=== PATIENT | male | born 1950 | race African-American/Black ===

== ENCOUNTER 2020-08-11 08:33 | Observation (INO) ==
[2020-08-11] MEDS ORDERED: NITROGLYCERIN SL 0.4 MG TABLET SL PRN (09:10)
[2020-08-11] MEDS ORDERED: ASPIRIN 325 MG TABLET PO STA (09:10)
[2020-08-11 09:15] LABS: Basophils % 0.4 % (0.0-0.8); Eosinophils # 0.1 10*3/uL (0.0-0.87); Eosinophils % 1.3 % (0.00-10.9); Hemoglobin 14.4 GM/DL (14.0-18.0); Immature Granulocytes % 0.1 %; Immature Granulocytes Absolute 0.01 #; Lymphocytes # 2.9 10*3/uL (1.4-4.0); Lymphocytes % 38.6 % (21.2-54.2); Mean Corpuscular HGB Conc 33.5 GM/DL (32-36); Mean Corpuscular Volume 92.5 FL (87-102); Mean Platelet Volume 11.2 FL (9.6-12.0); Monocytes % 7.1 % (1.7-12.7); Neutrophils % 52.5 % (38.7-73.9); Platelet Count 218 T/CUMM (130-400); Red Blood Count 4.65 MC/CUMM (3.8-5.5); Red Cell Distribution Width 12.7 % (9.3-17.3); White Blood Count 7.4 T/CUMM (4-12)
[2020-08-11 09:30] LABS: Albumin 4.1 G/DL (3.4-5.0); Bilirubin,Total 0.4 MG/DL (0.2-1.0); Calcium 9.2 MG/DL (8.5-10.1); Potassium 3.9 MMOL/L (3.5-5.1); Total Protein 7.8 G/DL (6.4-8.2)
[2020-08-11 10:42] LABS: INR 1.1; PT Patient Result 11.7 SECS (9.8-11.9)
[2020-08-11] MEDS ORDERED: ACETAMINOPHEN 325 MG TABLET PO PRN (11:09)
[2020-08-11] MEDS ORDERED: GLUCAGON 1 MG VIAL IM PRN ×3 (11:09→14:53)
[2020-08-11] MEDS ORDERED: DEXTROSE 50% 25 GM/50 ML VIAL IV PRN ×3 (11:09→14:53)
[2020-08-11] MEDS ORDERED: ONDANSETRON 4 MG/2 ML VIAL IV PRN (11:09)
[2020-08-11] MEDS ORDERED: KETOROLAC 30 MG/1 ML VIAL IV ONE (11:14)
[2020-08-11] MEDS ORDERED: ENOXAPARIN 40 MG/0.4 ML SYRINGE SUBCUT SCH (11:30)
[2020-08-11] MEDS: INSULIN LISPRO 100 UNIT/ML SUBCUT SCH ×2 (16:26→21:50)
[2020-08-11] MEDS ORDERED: INSULIN GLARGINE 100 UNIT/ML SUBCUT SCH (21:00)
[2020-08-11] MEDS: GABAPENTIN 400 MG CAPSULE PO SCH (21:38)
[2020-08-12 06:16] LABS: Basophils % 0.5 % (0.0-0.8); Eosinophils # 0.1 10*3/uL (0.0-0.87); Eosinophils % 1.8 % (0.00-10.9); Hematocrit 41.7 VOL% (42.0-52.0); Hemoglobin 15.1 GM/DL (14.0-18.0); Immature Granulocytes % 0.2 %; Immature Granulocytes Absolute 0.01 #; Lymphocytes # 2.7 10*3/uL (1.4-4.0); Mean Corpuscular HGB Conc 36.2 GM/DL (32-36); Mean Corpuscular Volume 90.5 FL (87-102); Mean Platelet Volume 11.5 FL (9.6-12.0); Neutrophils % 47.5 % (38.7-73.9); Platelet Count 238 T/CUMM (130-400); Red Blood Count 4.61 MC/CUMM (3.8-5.5); Red Cell Distribution Width 12.7 % (9.3-17.3); White Blood Count 6.3 T/CUMM (4-12)
[2020-08-12] MEDS ORDERED: OMEPRAZOLE ODT 20 MG TABLET PO SCH (06:30)
[2020-08-12 06:34] LABS: Calcium 8.6 MG/DL (8.5-10.1); Potassium 3.9 MMOL/L (3.5-5.1)
[2020-08-12 08:20] VITALS: BP 130/79
[2020-08-12] MEDS ORDERED: ROSUVASTATIN 10 MG TABLET PO SCH (09:00)
[2020-08-12] MEDS ORDERED: lisinopriL 10 MG TABLET PO SCH (09:00)
[2020-08-12] MEDS ORDERED: hydroCHLOROthiazide 12.5 MG CAPSULE PO SCH (09:00)
[2020-08-12] MEDS ORDERED: MAGNESIUM OXIDE 400 MG TABLET PO SCH (09:00)
[2020-08-12] MEDS ORDERED: CHOLECALCIFEROL 1,000 UNIT TABLET PO SCH (09:00)
[2020-08-12] MEDS ORDERED: amLODIPine 10 MG TABLET PO SCH (09:00)
[2020-08-12] MEDS ORDERED: sitaGLIPtin 100 MG TABLET PO SCH (09:00)
[2020-08-12] MEDS: GABAPENTIN 400 MG CAPSULE PO SCH (09:02)
[2020-08-12] MEDS: INSULIN LISPRO 100 UNIT/ML SUBCUT SCH (09:04)
== END 2020-08-12 11:09 | disposition home or self-care (01) ==
LOC: N.EDINP 08:33 → N.ED 08:33 → N.TELEN 12:59
PROVIDERS: ADMIT Internal Medicine Geriatric Medicine; ATTEND Internal Medicine Geriatric Medicine